=== PATIENT | female | born 1970 | race Caucasian/White ===

== ENCOUNTER 2020-05-06 09:59 | Outpatient (CLI) | payer BC ==
--- NOTE | 2020-05-06 10:30 | RAD ---
XR Finger(s) Rt Min 2 View History: Thumb pain Comparison: None. Findings: Mild soft tissue swelling of the thumb. No acute displaced fracture or malalignment. Impression: Soft tissue swelling without acute osseous abnormality.
== END 2020-05-06 10:00 | disposition home or self-care (01) ==
LOC: BICRAD 09:59
PROVIDERS: ATTEND Specialist
DX: M65.311 Trigger thumb, right thumb (principal); M79.89 Other specified soft tissue disorders

== ENCOUNTER 2022-11-17 14:27 | Outpatient (CLI) | payer BC | END 2022-11-17 14:28 | disposition home or self-care (01) | LOC: DTY/OP 14:27 | PROVIDERS: ATTEND Nurse Practitioner Family | DX: E66.01 Morbid (severe) obesity due to excess calories (principal); Z68.42 Body mass index [BMI] 45.0-49.9, adult | CPT/HCPCS: 97802 ==

== ENCOUNTER 2024-05-04 10:10 | Outpatient (CLI) | payer BC | END 2024-05-04 10:11 | disposition home or self-care (01) | LOC: BICMAMMO 10:10 | PROVIDERS: ATTEND Nurse Practitioner Family | DX: Z12.31 Encounter for screening mammogram for malignant neoplasm of breast (principal); Z98.890 Other specified postprocedural states | CPT/HCPCS: 77063; 77067 ==